=== PATIENT | female | born 1990 | race Caucasian/White ===

== ENCOUNTER → 2017-08-05 | Outpatient (CLI) | payer OTHER ==
--- NOTE | 2017-08-06 00:32 | REP ---
PA and lateral chest: There are no comparisons. The lung johnson are clear. The cardiac size is normal The ian, mediastinum, and bony thorax are unremarkable. Impression: Negative PA and lateral chest. Given the clinical findings consider CT for further evaluation. Signed by Ryan Snyder MD 08/05/2017 04:22 P
--- NOTE | 2017-08-06 00:33 | REP ---
Right ankle four views : There is no fracture or dislocation. Mineralization and joint spaces are normal. There are no calcifications or foreign bodies. Impression: Negative right ankle . Signed by Ryan Snyder MD 08/05/2017 04:35 P
--- NOTE | 2017-08-06 06:11 | REP ---
ULTRASOUND LEFT SUPRACLAVICULAR REGION: Real-time sonographic evaluation of the left supraclavicular region performed. No cystic or solid nodules are seen. IMPRESSION: No evidence of mass in the visualized left supraclavicular region. Signed by Ryan Crespo MD 08/06/2017 09:41 A
== END ==
LOC: M LRY 15:23
PROVIDERS: ATTEND Family Medicine
DX: R22.2 Localized swelling, mass and lump, trunk (principal); Z85.71 Personal history of Hodgkin lymphoma; M25.571 Pain in right ankle and joints of right foot

== ENCOUNTER → 2017-08-05 | Outpatient (REF) | payer OTHER ==
[2017-08-06 11:35] LABS: ALBUMIN 4.4 GM/DL (3.2-5.2); ALBUMIN/GLOBULIN RATIO 1.42 (1.00-1.93); ALKALINE PHOSPHATASE 67 U/L (45-117); ALT/SGPT 29 U/L (12-78); ANION GAP 9 MEQ/L (8-16); AST/SGOT 14 U/L (15-37); BILIRUBIN,TOTAL 0.3 MG/DL (0.2-1.0); BLOOD UREA NITROGEN 16 MG/DL (7-18); CALCIUM LEVEL 9.2 MG/DL (8.5-10.1); CARBON DIOXIDE LEVEL 26 MEQ/L (21-32); CHLORIDE LEVEL 106 MEQ/L (98-107); CREATININE FOR GFR 0.65 MG/DL (0.55-1.02); GLOMERULAR FILTRATION RATE > 60.0 (>60); GLUCOSE, FASTING 96 MG/DL (70-105); POTASSIUM SERUM 3.9 MEQ/L (3.5-5.1); SODIUM LEVEL 141 MEQ/L (136-145); TOTAL PROTEIN 7.5 GM/DL (6.4-8.2)
[2017-08-06 11:39] LABS: MEAN CORPUSCULAR HEMOGLOBIN 30.7 pg (27.0-33.0); MEAN CORPUSCULAR HGB CONC 36.1 g/dl (32.0-36.5); MEAN CORPUSCULAR VOLUME 84.9 fl (80.0-96.0); RED CELL DISTRIBUTION WIDTH 12.4 % (11.5-14.5); WHITE BLOOD COUNT 8.6 K/mm3 (4.0-10.0)
[2017-08-06 13:02] LABS: EOSINOPHILS 1 % (0-5)
[2017-08-06 13:41] LABS: REASON FOR REVIEW COMPREHENSIVE REVIEW
[2017-08-06 14:13] LABS: ERYTHROCYTE SEDIMENTATION RATE 6 mm/hr (0-20)
== END ==
LOC: M SFHCLERA 15:10
PROVIDERS: ATTEND Family Medicine
DX: R22.2 Localized swelling, mass and lump, trunk (principal); Z85.71 Personal history of Hodgkin lymphoma

== ENCOUNTER → 2018-11-12 | Outpatient (REF) | payer OTHER | LOC: M SFHCLERA 18:31 | PROVIDERS: ATTEND Nurse Practitioner Family | DX: R50.9 Fever, unspecified (principal) ==

== ENCOUNTER → 2019-03-15 | Outpatient (REF) | payer OTHER | LOC: M SFHCLERA 12:21 | PROVIDERS: ATTEND Family Medicine | DX: Z85.71 Personal history of Hodgkin lymphoma (principal); L65.9 Nonscarring hair loss, unspecified ==